=== PATIENT | male | born 1995 | race Caucasian/White ===

== ENCOUNTER 2018-11-04 19:32 | Emergency (ER) | payer MEDICAID, OTHER ==
[~2018-11-04] VITALS: Ht 185.4 cm; Wt 95.3 kg
[2018-11-04 19:36] VITALS: BP 144/85
[2018-11-05] MEDS ORDERED: SILVER SULFADIAZINE 1 % TOPICAL CREAM 50GM TOP ONE (15:50)
== END 2018-11-04 19:54 | disposition left against medical advice (07) ==
LOC: ER 19:39
DX: Z04.1 Encounter for examination and observation following transport accident (principal); Z53.21 Procedure and treatment not carried out due to patient leaving prior to being seen by health care provider